=== PATIENT | male | born 1990 | race Caucasian/White ===

== ENCOUNTER 2016-09-29 11:08 | Emergency (ER) | payer SELFPAY ==
[~2016-09-29] VITALS: Ht 188 cm; Wt 99.8 kg
[2016-09-29 12:29] VITALS: BP 114/85
[2016-09-29] MEDS ORDERED: KETOROLAC TROMETH 60MG/2ML VIAL IM ONE (12:45)
== END 2016-09-29 12:51 | disposition home or self-care (01) ==
LOC: ER 11:08
DX: K02.9 Dental caries, unspecified (principal)
CPT/HCPCS: 96372; 99283; J1885